=== PATIENT | female | born 1985 ===

== ENCOUNTER 2019-06-10 22:14 | Emergency (ER) | payer OTHER ==
[~2019-06-10] VITALS: Ht 160 cm; Wt 85.7 kg
[2019-06-10] MEDS ORDERED: MOTRIN 800 MG (22:57)
== END 2019-06-11 10:59 | disposition home or self-care (01) ==
LOC: ER 22:14
DX: R10.32 Left lower quadrant pain (principal); R10.2 Pelvic and perineal pain; N39.0 Urinary tract infection, site not specified